=== PATIENT | female | born 1990 | race Caucasian/White ===

== ENCOUNTER → 2021-07-31 | Outpatient (CLI) | payer OTHER ==
[~2021-07-31] MED LIST: DOCUSATE SODIU100 M1 PO; IBUPROFEN600 MG PO; NORCO 5-325 TA1 EACH PO
== END ==
LOC: KOH-I 11:00
DX: R10.84 Generalized abdominal pain (principal)
CPT/HCPCS: 74018

== ENCOUNTER → 2021-09-03 | Outpatient (CLI) | payer OTHER | LOC: EXRD 10:00 | DX: R94.8 Abnormal results of function studies of other organs and systems (principal); K76.0 Fatty (change of) liver, not elsewhere classified | CPT/HCPCS: 76700 ==